=== PATIENT | male | born 1995 ===

== ENCOUNTER 2018-02-05 20:11 | Emergency (ER) | payer SELFPAY ==
[2018-02-05 20:30] VITALS: O2SAT 100
[2018-02-05] MEDS ORDERED: Morphine 4 MG/ML VIAL ONE (22:38)
[2018-02-05] MEDS: Sodium Chloride 0.9% 1,000 ML IV STA (22:43)
[2018-02-05 22:51] LABS: BASO # 0.1 K/uL (0.0-0.2); BASO % 0.5 % (0.0-2.0); EOS # 0.1 K/uL (0.0-0.7); EOS % 1.2 % (0.0-4.0); HEMOGLOBIN 14.5 g/dL (12.0-18.0); LYMPH # 1.6 K/uL (1.0-4.3); LYMPH % 14.8 % (20.0-40.0); MEAN CELL VOLUME 81.4 fl (80.0-94.0); MEAN CORPUSCULAR HEMOGLOBIN 27.5 pg (27.0-31.0); MEAN CORPUSCULAR HGB CONC 33.7 g/dL (33.0-37.0); MEAN PLATELET VOLUME 8.5 fl (7.2-11.7); MONO # 1.1 K/uL (0.0-0.8); MONO % 9.7 % (0.0-10.0); NEUT # 8.3 K/uL (1.8-7.0); NEUT % 73.8 % (50.0-75.0); RBC 5.28 Mil/uL (4.40-5.90); RED CELL DISTRIBUTION WIDTH 13.6 % (11.5-14.5); WHITE BLOOD COUNT 11.2 K/uL (4.8-10.8)
[2018-02-05 23:01] LABS: ALB/GLOB RATIO 1.4 (1.0-2.1); ALBUMIN 4.8 g/dL (3.5-5.0); ALT/SGPT 25 U/L (21-72); AST/SGOT 22 U/L (17-59); BLOOD UREA NITROGEN 11 mg/dl (9-20); GFR AFRICAN-AMERICAN > 60; GFR NON-AFRICAN AMERICAN > 60; LIPASE 63 U/L (23-300)
--- NOTE | 2018-02-06 00:37 | ED PDOC ---
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 Patient states he was seen at a clinic and told his liver is "inflamed", states he was also prescribed homeopathic drops for his kidney's. Patient states pain persists, and cannot ambulate without assistance for the last 20 days. Denies fever, nausea/vomiting, chest pain, shortness of breath, palpitations, changes in bowel movements, urinary symptoms. (Tatiana Carvajal) Supervising Attending Note <Tatiana Carvajal - Last Filed: 02/06/18 06:06> - Attestation: I have personally seen and examined this patient.: Yes I have fully participated in the care of the patient.: Yes I have reviewed all pertinent clinical information: Yes <Juarez Moore - Last Filed: 02/06/18 20:01> - Notes: Notes:: Patient with T10 lesion with significant lower extremity deficits. NS and neuro both in agreement (Praveena and Rodrigo) to transfer. Spoke with NS resident at [facility] and ED attendings, patient to be transferred for MRI and further care. (Juarez Moore) Past Medical History Reviewed: Historical Data, Nursing Documentation, Vital Signs - Medical History PMH: No Chronic Diseases - Surgical History Surgical History: No Surg Hx - Family History Family History: States: No Known Family Hx - Living Arrangements Living Arrangements: With Family <Tatiana Carvajal - Last Filed: 02/06/18 06:06> <Juarez Moore - Last Filed: 02/06/18 20:01> Vital Signs: Last Vital Signs Temp 98.7 F 02/06/18 05:05 Pulse 75 02/06/18 05:05 Resp 16 02/06/18 05:05 BP 117/73 02/06/18 05:05 Pulse Ox 100 02/06/18 06:08 - Allergies Allergies/Adverse Reactions: Allergies Allergy/AdvReac Type Severity Reaction Status Date / Time No Known Allergies Allergy Verified 02/05/18 20:28 Review of Systems ROS Statement: Except As Marked, All Systems Reviewed And Found Negative Gastrointestinal: Positive for: Abdominal Pain <Tatiana Carvajal - Last Filed: 02/06/18 06:06> Physical Exam - Reviewed Nursing Documentation Reviewed: Yes Vital Signs Reviewed: Yes - Physical Exam Appears: Positive for: Well, Non-toxic, Uncomfortable Head Exam: Positive for: ATRAUMATIC, NORMAL INSPECTION, NORMOCEPHALIC Skin: Positive for: Normal Color Eye Exam: Positive for: Normal appearance ENT: Positive for: Normal ENT Inspection Cardiovascular/Chest: Positive for: Regular Rate, Rhythm Respiratory: Positive for: Normal Breath Sounds Gastrointestinal/Abdominal: Positive for: Bowel Sounds, Soft, Tenderness (RUQ, RLQ, right flank) Back: Positive for: Normal Inspection Rectal: Positive for: Rectal Tone Is: (intact; no perianal anesthesia), Other ( 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 Negative for: Normal ROM (flacid paralysis b/l LE), Pedal Edema, Calf Tenderness, Deformity, Swelling Neurologic/Psych: Positive for: Alert, Oriented, Motor/Sensory Deficits ( decreased sensation to b/l LE) <Tatiana Carvajal - Last Filed: 02/06/18 06:06> - Laboratory Results Result Diagrams: 02/05/18 22:40 02/05/18 22:40 - ECG O2 Sat by Pulse Oximetry: 100 Pulse Ox Interpretation: Normal - Radiology X-Ray: Viewed By Mo X-Ray Interpretation: No Acute Disease <Tatiana Carvajal - Last Filed: 02/06/18 06:06> - Laboratory Results Result Diagrams: 02/05/18 22:40 02/05/18 22:40 <Juarez Moore - Last Filed: 02/06/18 20:01> - Progress ED Course And Treament: labs, u/s EXAM: CT Abdomen and Pelvis With Intravenous Contrast CLINICAL HISTORY: 22 years old, male; Pain; Abdominal pain; Localized; Right; Additional info: Right-sided abd pain TECHNIQUE: Axial computed tomography images of the abdomen and pelvis with intravenous contrast. All CT scans at this facility use at least one of these dose optimization techniques: automated exposure control; mA and/or kV adjustment per patient size (includes targeted exams where dose is matched to clinical indication); or iterative reconstruction. 568 images are submitted.Sagittal , axial and coronal MPR reformatted images are submitted. Axial images are submitted in lung and soft tissue windows. Oral contrast is seen in the colon. CONTRAST: 90 mL of administered intravenously. COMPARISON: No relevant prior studies available. FINDINGS: Lung bases: Unremarkable. No mass. No consolidation. ABDOMEN: Liver: Fatty liver.Small focus of decreased density adjacent to falciform of the liver which may represent a focus of focal fatty infiltration. Gallbladder and bile ducts: Unremarkable. No ductal dilation. Pancreas: Unremarkable. No mass. No ductal dilation. Spleen: Unremarkable. No splenomegaly. Adrenals: Unremarkable. No mass. Kidneys and ureters: Unremarkable. No solid mass. No hydronephrosis. Stomach and bowel: There are nonspecific fluid filled stomach, small bowel loops. These findings can represent ileus versus gastroenteritis/enteritis versus slow transit versus peristalsis. No obstruction. PELVIS: Appendix: Normal appendix with appendicolith versus retained contrast. Bladder: Partially decompressed bladder with bladder wall thickening. Correlation with urinalysis is recommended only if clinical cystitis is suspected. Reproductive: Enlarged prostate gland. ABDOMEN and PELVIS: Intraperitoneal space: Unremarkable. No free air. No significant fluid collection. Bones/joints: There is lytic lesion involving T10 vertebral body with soft tissue mass.There is vertebral plana with complete loss of vertebral body height involving T10 vertebral body with hyperdense soft tissue mass extruding and extending into the right lamina and extending into the bony spinal canal with severe spinal stenosis. The mass extending into the spine posteriorly at T9- T10 level measures 2.4 x 1.1 x 2.9 cm. Neurosurgical evaluation and workup is recommended. Radiographic differential diagnosis may include plasmacytoma a variant of multiple myeloma. No dislocation. Soft tissues: Unremarkable. Vasculature: Unremarkable. No abdominal aortic aneurysm. Lymph nodes: Unremarkable. No enlarged lymph nodes. Other findings: CRITICAL RESULT: The study was personally discussed on the telephone with Tatiana Carvajal PA-C on 02/06/20183:10 AM EDTThe results were understood and acknowledged. IMPRESSION: 1. There is lytic lesion involving T10 vertebral body with soft tissue mass.There is vertebral plana with complete loss of vertebral body height involving T10 vertebral body with hyperdense soft tissue mass extruding and extending into the right lamina and extending into the bony spinal canal with severe spinal stenosis. The mass extending into the spine posteriorly at T9-T10 level measures 2.4 x 1.1 x 2.9 cm. Neurosurgical evaluation and workup is recommended. Radiographic differential diagnosis may include plasmacytoma a variant of multiple myeloma. Patient evaluated by ED attending Dr. Moore; will call neurosurgery for further recommendations 3:[address] Grissom, Neurosurgery on-call; recommends MRI with contrast as soon as possible and will see in am. Recommends also calling Neurology on-call. 4:07 Dr. Moore spoke with Dr. Wallace, Neurology on-call, who recommends transfer for stat MRI/operative intervention 4:10 Dr. Grissom called back, states he reviewed images and patient will likely require anterior resection which we do not have capability to do here in OR. Recommends transfer to [facility] 4:20 Dr. Moore spoke with Dr. Alvarado, Neurosurgical resident on-call at [facility]; will accept patient under Dr. Chavez, Neurosurgical attending, with ED to ED transfer. Dr. Moore spoke with Dr. Perkins from ED regarding transfer (Tatiana Carvajal) Disposition - Disposition Disposition: Other Institution ([facility]) Disposition Time: 05:15 <Tatiana Carvajal - Last Filed: 02/06/18 06:06> <Juarez Moore - Last Filed: 02/06/18 20:01> - Clinical Impression Clinical Impression: Lesion of vertebra, Soft tissue mass, Lower extremity paralysis - Disposition Condition: STABLE Forms: [employer] (Setswana)
[2018-02-06] MEDS ORDERED: Iohexol 300 100 ML IJ ONE (01:30)
[2018-02-06] MEDS ORDERED: Sodium Chloride 0.9% 50 ML IV ONE (01:30)
[2018-02-06 02:02] LABS: URINE AMORPHOUS SEDIMENT MANY /ul (<OCC); URINE BILIRUBIN NEGATIVE (NEGATIVE); URINE BLOOD NEGATIVE (NEGATIVE); URINE CLARITY CLOUDY (Clear); URINE COLOR YELLOW (YELLOW); URINE GLUCOSE (UA) NEG (Normal); URINE LEUKOCYTE ESTERASE NEG Leu/uL (Negative); URINE PROTEIN NEGATIVE (NEGATIVE); URINE UROBILINOGEN 0.2-1.0 mg/dL (0.2-1.0)
[2018-02-06 04:54] VITALS: RESP 16
[2018-02-06 05:20] VITALS: BP 117/73; PULSE 75; TEMP 98.7
--- NOTE | 2018-02-06 08:30 | RAD ---
HISTORY: clearance COMPARISON: No prior. FINDINGS: LUNGS: No active pulmonary disease. PLEURA: No significant pleural effusion identified, no pneumothorax apparent. CARDIOVASCULAR: Normal. OSSEOUS STRUCTURES: Thoracic spondylosis VISUALIZED UPPER ABDOMEN: GI tract contrast from preceding abdomen and pelvic CT exam OTHER FINDINGS: None. IMPRESSION: No active disease.
--- NOTE | 2018-02-06 09:07 | CT ---
PROCEDURE: CT Abdomen and Pelvis with contrast HISTORY: right-sided abd pain COMPARISON: None. TECHNIQUE: Contrast dose: 90 mL Omnipaque 300 Radiation dose: Total exam DLP = 254 mGy-cm. This CT exam was performed using one or more of the following dose reduction techniques: Automated exposure control, adjustment of the mA and/or kV according to patient size, and/or use of iterative reconstruction technique. FINDINGS: LOWER THORAX: Trace discoid like atelectatic changes posterior right lung base. LIVER: Unremarkable. No ductal dilatation. . Bordering the anterior falciform ligament a approximately 1.6 cm hypodense subcapsular focus is noted possibly focal fatty infiltration GALLBLADDER AND BILE DUCTS: Unremarkable. PANCREAS: Unremarkable. No gross lesion or ductal dilatation. SPLEEN: Unremarkable. ADRENALS: Unremarkable. No mass. KIDNEYS AND URETERS: Unremarkable. No hydronephrosis. No solid mass. VASCULATURE: Unremarkable. No aortic aneurysm. BOWEL: Unremarkable. No obstruction. No gross mural thickening. APPENDIX: Normal appendix. PERITONEUM: Unremarkable. No free fluid. No free air. LYMPH NODES: Unremarkable. No enlarged lymph nodes. BLADDER: Decompressed REPRODUCTIVE: Prominent prostate. Symmetrical bilateral prominent seminal vesicles BONES: The T10 vertebrae is grossly abnormal. A lytic expansile process within it is associated with a T10 vertebral body complete collapse -vertebral plana. The inferred marrow replacing/expanding process has an associated soft tissue mass extending surrounding this T10 vertebral body and extends into the posterior spinal canal - resulting in severe spinal stenosis from the T9-10 to the T10-11 levels. This marrow replacing/expandsile process extends into the right pedicle and right lamina. The contiguous right rib appears grossly unaffected. OTHER FINDINGS: None. IMPRESSION: T10 vertebral body, right pedicle and right lamina lytic lesion with extensive soft tissue component resulting in severe spinal stenosis from T9-10 through including T10-11. A plasmacytoma is 1 consideration. Concordant results (preliminary interpretation) provided by [employer]. Please note these prior V rad findings were then reported as having been called i as critical results and are recorded as discussed on the phone with Alena PALACIOS on 02/06/2018 at 3:10 a.m. Eastern standard time
--- NOTE | 2018-02-06 09:57 | US ---
HISTORY: ruq pain COMPARISON: CT abdomen and pelvis 02/06/2018 TECHNIQUE: Sonographic evaluation of the right upper quadrant of the abdomen. FINDINGS: LIVER: Measures 14.8 cm in length. Normal echogenicity of the liver parenchyma. No intrahepatic bile duct dilatation. . The CT referenced 1.6 cm hypodense subcapsular focus bordering the anterior falciform ligament possibly representing focal fatty infiltration is not optimally evaluate are depicted on this exam. GALLBLADDER: In contrast to the CT study as well no sonographic suggestion of pericholecystic fluid appreciated. The gallbladder wall is not thickened. There is gallbladder sludge apparent -which is CT occult No gallstones noted. No positive ultrasound Wright sign . COMMON BILE DUCT: Measures 5 mm. No stones. No dilatation. PANCREAS: Unremarkable as visualized. No mass. No ductal dilatation. RIGHT KIDNEY: Measures 9.6 x 3.8 x 3.5 cm in length. Normal echogenicity. No calculus, mass, or hydronephrosis. AORTA: No aneurysmal dilatation. IVC: Unremarkable. OTHER FINDINGS: None . IMPRESSION: Gallbladder sludge. Otherwise wall gallbladder appearance. No sonographic evidence of acute cholecystitis Concordant results (preliminary interpretation) provided by [facility].
== END 2018-02-06 05:16 | disposition short-term general hospital (02) ==
LOC: H.ER 20:11
DX: M89.9 Disorder of bone, unspecified (principal); G82.20 Paraplegia, unspecified; G83.10 Monoplegia of lower limb affecting unspecified side; R10.11 Right upper quadrant pain; M79.9 Soft tissue disorder, unspecified
CPT/HCPCS: 71045; 74177; 76705; 80053; 81003; 83690; 85025; 87086; 96361; 96374; 96375; 99285; J1885; J2270; J7030; Q9967